=== PATIENT | female | born 1980 | race African-American/Black ===

== ENCOUNTER 2019-03-31 09:06 | Emergency (ER) | payer OTHER ==
[~2019-03-31] VITALS: Ht 162.5 cm; Wt 82.6 kg
--- NOTE | ~2019-03-31 | EKG ---
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
[2019-03-31 10:11] LABS: HEMATOCRIT 30.6 % (37.0-47.0); HEMOGLOBIN 9.1 g/dl (12.0-16.0); MEAN CELL VOLUME 78.3 fl (81.0-99.0); MEAN CORPUSCULAR HGB 23.3 pg (27.0-31.0); MEAN CORPUSCULAR HGB CONC 29.7 g/dl (33.0-37.0); NUCLEATED RED BLOOD CELL 0.1 % (0.0-0.0); PLATELET COUNT AUTOMATED 217 10*3/uL (130-400); RED BLOOD COUNT 3.91 10*6/uL (4.10-5.10); RED CELL DISTRI WIDTH 20.9 % (0-14.5); WHITE BLOOD COUNT 21.7 10*3/uL (4.8-10.8)
[2019-03-31 10:21] LABS: ALBUMIN 3.4 gm/dl (3.1-4.5); ALKALINE PHOSPHATASE 73 U/L (45-117); BUN 9 mg/dl (7-24); CHLORIDE 110 mmol/L (98-107); CREATININE 1.02 mg/dL (0.55-1.02); LIPASE 113 U/L (73-393); SGOT/AST 17 IU/L (3-35); SGPT/ALT 17 U/L (12-78); SODIUM 141 mmol/L (136-145); TOTAL PROTEIN 7.3 gm/dL (6.4-8.2)
[2019-03-31 10:25] LABS: TROPONIN I < 0.015 ng/ml (<0.045)
[2019-03-31 10:32] LABS: BASOPHILS 1 % (0-1); TOTAL CELLS COUNTED 100 #CELLS
[2019-03-31 10:33] LABS: MICROCYTOSIS SLIGHT; OVALOCYTES FEW; POLYCHROMASIA SLIGHT; SCHISTOCYTES FEW
[2019-03-31 10:34] LABS: PLATELET SUFFICIENCY NORMAL (NORMAL)
[2019-03-31 10:41] LABS: BILIRUBIN NEGATIVE (NEGATIVE); BLOOD TRACE-INTACT (NEGATIVE); CLARITY SL CLOUDY (CLEAR); COLOR YELLOW (YELLOW); GLUCOSE NEGATIVE (NEGATIVE); KETONE NEGATIVE (NEGATIVE); LEUKO ESTERASE NEGATIVE (NEGATIVE); NITRITE NEGATIVE (NEGATIVE); SPECIFIC GRAVITY <= 1.005 (1.005-1.030); UROBILINOGEN 0.2 E.U./dl (0.2-1.0)
[2019-03-31 10:51] LABS: BACTERIA TRACE; RBC 0-2 rbc/hpf (0-2)
== END 2019-03-31 12:35 | disposition left against medical advice (07) ==
LOC: ED 09:06
PROVIDERS: Physician Assistant
DX: D57.00 Hb-SS disease with crisis, unspecified (principal); J18.9 Pneumonia, unspecified organism; R11.10 Vomiting, unspecified; Z88.8 Allergy status to other drugs, medicaments and biological substances

== ENCOUNTER 2019-04-07 11:31 | Emergency (ER) | payer OTHER ==
[~2019-04-07] VITALS: Ht 162.5 cm; Wt 80.3 kg
[2019-04-07 12:47] LABS: HEMATOCRIT 31.2 % (37.0-47.0); HEMOGLOBIN 9.4 g/dl (12.0-16.0); MEAN CORPUSCULAR HGB 23.8 pg (27.0-31.0); MEAN CORPUSCULAR HGB CONC 30.1 g/dl (33.0-37.0); MEAN PLATELET VOLUME 11.9 fl (9.6-12.3); PLATELET COUNT AUTOMATED 314 10*3/uL (130-400); RED BLOOD COUNT 3.95 10*6/uL (4.10-5.10); RED CELL DISTRI WIDTH 21.2 % (0-14.5); RETICULOCYTE % 2.19 % (0.50-2.50); WHITE BLOOD COUNT 16.1 10*3/uL (4.8-10.8)
[2019-04-07 13:01] LABS: ALBUMIN 3.7 gm/dl (3.1-4.5); ALKALINE PHOSPHATASE 77 U/L (45-117); BUN 5 mg/dl (7-24); CHLORIDE 108 mmol/L (98-107); CREATININE 0.81 mg/dL (0.55-1.02); POTASSIUM 3.9 mmol/L (3.5-5.1); SGOT/AST 12 IU/L (3-35); SGPT/ALT 16 U/L (12-78); SODIUM 139 mmol/L (136-145); TOTAL PROTEIN 7.6 gm/dL (6.4-8.2)
[2019-04-07 13:06] LABS: BASOPHILS 1 % (0-1); POLYCHROMASIA SLIGHT; SCHISTOCYTES FEW; SPHEROCYTES FEW; TOTAL CELLS COUNTED 100 #CELLS
[2019-04-07 13:07] LABS: PLATELET SUFFICIENCY NORMAL (NORMAL)
[2019-04-07 13:08] LABS: OVALOCYTES MODERATE
== END 2019-04-07 14:51 | disposition home or self-care (01) ==
LOC: ED 11:31
PROVIDERS: Physician Assistant
DX: D57.00 Hb-SS disease with crisis, unspecified (principal); I10 Essential (primary) hypertension; Z91.041 Radiographic dye allergy status; Z88.6 Allergy status to analgesic agent; Z91.013 Allergy to seafood; Z88.8 Allergy status to other drugs, medicaments and biological substances; Z86.718 Personal history of other venous thrombosis and embolism; Z86.711 Personal history of pulmonary embolism; Z90.89 Acquired absence of other organs; Z98.51 Tubal ligation status

== ENCOUNTER 2019-04-23 11:15 | Emergency (ER) | payer OTHER ==
[~2019-04-23] VITALS: Ht 162.5 cm; Wt 80.3 kg
[2019-04-23 12:00] LABS: HEMATOCRIT 30.8 % (37.0-47.0); MEAN CORPUSCULAR HGB 23.4 pg (27.0-31.0); MEAN CORPUSCULAR HGB CONC 29.2 g/dl (33.0-37.0); MEAN PLATELET VOLUME 11.6 fl (9.6-12.3); NUCLEATED RED BLOOD CELL 0.2 % (0.0-0.0); PLATELET COUNT AUTOMATED 185 10*3/uL (130-400); RED BLOOD COUNT 3.85 10*6/uL (4.10-5.10); RED CELL DISTRI WIDTH 20.8 % (0-14.5)
[2019-04-23 12:01] LABS: RETICULOCYTE % 2.09 % (0.50-2.50)
[2019-04-23 12:14] LABS: BILIRUBIN NEGATIVE (NEGATIVE); BLOOD NEGATIVE (NEGATIVE); CLARITY SL CLOUDY (CLEAR); COLOR YELLOW (YELLOW); GLUCOSE NEGATIVE (NEGATIVE); KETONE NEGATIVE (NEGATIVE); LEUKO ESTERASE NEGATIVE (NEGATIVE); NITRITE NEGATIVE (NEGATIVE); PH 6.5 (5.0-9.0); SPECIFIC GRAVITY <= 1.005 (1.005-1.030); UROBILINOGEN 0.2 E.U./dl (0.2-1.0)
[2019-04-23 12:16] LABS: ALBUMIN 3.4 gm/dl (3.1-4.5); ALKALINE PHOSPHATASE 75 U/L (45-117); BUN 6 mg/dl (7-24); CHLORIDE 106 mmol/L (98-107); CREATININE 0.91 mg/dL (0.55-1.02); LIPASE 90 U/L (73-393); OVALOCYTES FEW; POLYCHROMASIA SLIGHT; SGOT/AST 28 IU/L (3-35); SGPT/ALT 24 U/L (12-78); SODIUM 138 mmol/L (136-145); TOTAL CELLS COUNTED 100 #CELLS; TOTAL PROTEIN 7.2 gm/dL (6.4-8.2)
[2019-04-23 12:17] LABS: PLATELET SUFFICIENCY NORMAL (NORMAL); SCHISTOCYTES FEW
[2019-04-23 12:18] LABS: MICROCYTOSIS SLIGHT
[2019-04-23 12:24] LABS: EPITHELIAL CELLS 20-25; RBC 0-2 rbc/hpf (0-2); WBC 0-2 wbc/hpf (0-5)
== END 2019-04-23 14:15 | disposition home or self-care (01) ==
LOC: ED 11:15
PROVIDERS: Nurse Practitioner Family
DX: D57.00 Hb-SS disease with crisis, unspecified (principal); R11.2 Nausea with vomiting, unspecified; I10 Essential (primary) hypertension; G40.909 Epilepsy, unspecified, not intractable, without status epilepticus; Z98.51 Tubal ligation status; Z91.041 Radiographic dye allergy status; Z88.8 Allergy status to other drugs, medicaments and biological substances; Z88.6 Allergy status to analgesic agent; Z91.013 Allergy to seafood; Z86.718 Personal history of other venous thrombosis and embolism; Z90.49 Acquired absence of other specified parts of digestive tract

== ENCOUNTER 2019-05-28 14:35 | Emergency (ER) | payer OTHER ==
[~2019-05-28] VITALS: Ht 162.5 cm; Wt 81.6 kg
[2019-05-28 16:17] LABS: HEMATOCRIT 26.9 % (37.0-47.0); HEMOGLOBIN 8.2 g/dl (12.0-16.0); MEAN CELL VOLUME 80.1 fl (81.0-99.0); MEAN CORPUSCULAR HGB 24.4 pg (27.0-31.0); MEAN CORPUSCULAR HGB CONC 30.5 g/dl (33.0-37.0); MEAN PLATELET VOLUME 11.4 fl (9.6-12.3); NUCLEATED RED BLOOD CELL 0.1 % (0.0-0.0); NUCLEATED RED BLOOD CELL 0.1 10*3/uL (0.0-0.0); PLATELET COUNT AUTOMATED 189 10*3/uL (130-400); RED BLOOD COUNT 3.36 10*6/uL (4.10-5.10); RED CELL DISTRI WIDTH 22.3 % (0-14.5)
[2019-05-28 16:21] LABS: WHITE BLOOD COUNT 42.8 10*3/uL (4.8-10.8)
[2019-05-28 16:29] LABS: ALBUMIN 3.4 gm/dl (3.1-4.5); ALKALINE PHOSPHATASE 74 U/L (45-117); BUN 7 mg/dl (7-24); CHLORIDE 107 mmol/L (98-107); CREATININE 0.83 mg/dL (0.55-1.02); POTASSIUM 3.6 mmol/L (3.5-5.1); SGOT/AST 9 IU/L (3-35); SGPT/ALT 16 U/L (12-78); SODIUM 138 mmol/L (136-145); TOTAL PROTEIN 6.9 gm/dL (6.4-8.2)
[2019-05-28 16:38] LABS: POLYCHROMASIA SLIGHT; TOTAL CELLS COUNTED 100 #CELLS
[2019-05-28 16:41] LABS: OVALOCYTES FEW; PLATELET SUFFICIENCY NORMAL (NORMAL)
== END 2019-05-28 17:10 | disposition left against medical advice (07) ==
LOC: ED 14:35
PROVIDERS: Family Medicine
DX: K29.70 Gastritis, unspecified, without bleeding (principal); R11.10 Vomiting, unspecified; Z91.041 Radiographic dye allergy status; Z91.013 Allergy to seafood; Z88.6 Allergy status to analgesic agent; Z88.8 Allergy status to other drugs, medicaments and biological substances

== ENCOUNTER 2019-07-28 09:06 | Emergency (ER) | payer OTHER ==
[~2019-07-28] VITALS: Ht 162.5 cm; Wt 79.4 kg
[2019-07-28 10:04] LABS: HEMATOCRIT 29.5 % (37.0-47.0); HEMOGLOBIN 8.7 g/dl (12.0-16.0); MEAN CELL VOLUME 83.6 fl (81.0-99.0); MEAN CORPUSCULAR HGB 24.6 pg (27.0-31.0); MEAN CORPUSCULAR HGB CONC 29.5 g/dl (33.0-37.0); MEAN PLATELET VOLUME 11.7 fl (9.6-12.3); NUCLEATED RED BLOOD CELL 0.2 10*3/uL (0.0-0.0); NUCLEATED RED BLOOD CELL 0.4 % (0.0-0.0); PLATELET COUNT AUTOMATED 258 10*3/uL (130-400); RED BLOOD COUNT 3.53 10*6/uL (4.10-5.10); RED CELL DISTRI WIDTH 21.2 % (0-14.5)
[2019-07-28 10:15] LABS: WHITE BLOOD COUNT 40.3 10*3/uL (4.8-10.8)
[2019-07-28 10:18] LABS: ALBUMIN 3.6 gm/dl (3.1-4.5); ALKALINE PHOSPHATASE 76 U/L (45-117); BUN 9 mg/dl (7-24); CHLORIDE 111 mmol/L (98-107); CREATININE 0.84 mg/dL (0.55-1.02); POTASSIUM 4.1 mmol/L (3.5-5.1); SGOT/AST 11 IU/L (3-35); SGPT/ALT 17 U/L (12-78); SODIUM 142 mmol/L (136-145); TOTAL PROTEIN 7.3 gm/dL (6.4-8.2)
[2019-07-28 10:29] LABS: TOTAL CELLS COUNTED 100 #CELLS
[2019-07-28 10:29] LABS: CLARITY CLEAR (CLEAR); COLOR YELLOW (YELLOW)
[2019-07-28 10:30] LABS: BILIRUBIN NEGATIVE (NEGATIVE); BLOOD NEGATIVE (NEGATIVE); GLUCOSE NEGATIVE (NEGATIVE); KETONE NEGATIVE (NEGATIVE); LEUKO ESTERASE NEGATIVE (NEGATIVE); NITRITE NEGATIVE (NEGATIVE); PH 6.5 (5.0-9.0); SPECIFIC GRAVITY 1.005 (1.005-1.030); UROBILINOGEN 0.2 E.U./dl (0.2-1.0)
[2019-07-28 10:30] LABS: OVALOCYTES FEW; PLATELET SUFFICIENCY NORMAL (NORMAL); POLYCHROMASIA SLIGHT
[2019-07-28 10:34] LABS: URINE AMPHETAMINES < 1000 (1000ng/ml); URINE BARBITURATES < 200 (200ng/ml); URINE BENZODIAZEPINES > 200 (200ng/ml); URINE CANNABINOIDS (THC) < 50 (50ng/ml); URINE COCAINE < 300 (300ng/ml); URINE METHADONE < 300 (300ng/ml); URINE OPIATES < 300 (300ng/ml)
[2019-07-28 10:35] LABS: RBC 0-2 rbc/hpf (0-2); WBC 0-2 wbc/hpf (0-5)
[2019-07-28 10:40] LABS: URINE PHENCYCLIDINE < 25 (25ng/ml)
== END 2019-07-28 12:15 | disposition home or self-care (01) ==
LOC: ED 09:06
PROVIDERS: Emergency Medicine
DX: D57.1 Sickle-cell disease without crisis (principal); I10 Essential (primary) hypertension; G40.909 Epilepsy, unspecified, not intractable, without status epilepticus; Z90.49 Acquired absence of other specified parts of digestive tract; Z91.041 Radiographic dye allergy status; Z91.013 Allergy to seafood; Z88.5 Allergy status to narcotic agent; Z88.8 Allergy status to other drugs, medicaments and biological substances

== ENCOUNTER 2019-07-30 16:20 | Emergency (ER) | payer OTHER ==
[~2019-07-30] VITALS: Ht 162.5 cm; Wt 79.4 kg
[2019-07-30] MEDS ORDERED: DIPHENHYDRAMINE50 M1 PO (17:53)
== END 2019-07-30 17:58 | disposition home or self-care (01) ==
LOC: ED 16:20
DX: D57.1 Sickle-cell disease without crisis (principal); R11.2 Nausea with vomiting, unspecified; R10.9 Unspecified abdominal pain; I10 Essential (primary) hypertension; L40.9 Psoriasis, unspecified; Z91.041 Radiographic dye allergy status; Z88.8 Allergy status to other drugs, medicaments and biological substances; Z91.013 Allergy to seafood; Z88.5 Allergy status to narcotic agent

== ENCOUNTER 2019-09-22 09:08 | Emergency (ER) | payer OTHER ==
[~2019-09-22] VITALS: Ht 162.5 cm; Wt 81.6 kg
[~2019-09-22 09:08] MED LIST: DIPHENHYDRAMINE50 M1 PO
[2019-09-22 09:45] LABS: BILIRUBIN NEGATIVE (NEGATIVE); BLOOD 2+ (NEGATIVE); CLARITY CLEAR (CLEAR); COLOR YELLOW (YELLOW); GLUCOSE NEGATIVE (NEGATIVE); KETONE NEGATIVE (NEGATIVE); PH 6.5 (5.0-9.0); SPECIFIC GRAVITY 1.005 (1.005-1.030)
[2019-09-22 09:46] LABS: BACTERIA TRACE; LEUKO ESTERASE NEGATIVE (NEGATIVE); NITRITE NEGATIVE (NEGATIVE); UROBILINOGEN 0.2 E.U./dl (0.2-1.0)
[2019-09-22 09:52] LABS: BASO # 0.4 10*3/uL (0.0-0.1); BASO % 0.6 % (0.0-1.0); EOS # 0.1 10*3/uL (0.0-0.4); EOS % 0.2 % (1.0-4.0); HEMATOCRIT 30.8 % (37.0-47.0); LYMPH # 3.4 10*3/uL (1.3-4.4); LYMPH % 5.9 % (27.0-41.0); MEAN CELL VOLUME 83.2 fl (81.0-99.0); MEAN CORPUSCULAR HGB 25.9 pg (27.0-31.0); MEAN CORPUSCULAR HGB CONC 31.2 g/dl (33.0-37.0); MEAN PLATELET VOLUME 10.2 fl (9.6-12.3); MONO # 2.4 10*3/uL (0.1-1.0); MONO % 4.1 % (3.0-9.0); NEUT # 40.1 10*3/uL (2.3-7.9); NEUT % 69.3 % (47.0-73.0); NUCLEATED RED BLOOD CELL 0.1 10*3/uL (0.0-0.0); NUCLEATED RED BLOOD CELL 0.2 % (0.0-0.0); PLATELET COUNT AUTOMATED 235 10*3/uL (130-400); RED CELL DISTRI WIDTH 21.2 % (0-14.5)
[2019-09-22 09:55] LABS: WHITE BLOOD COUNT 57.9 10*3/uL (4.8-10.8)
[2019-09-22 10:05] LABS: ALBUMIN 3.7 gm/dl (3.1-4.5); ALKALINE PHOSPHATASE 65 U/L (45-117); BUN 9 mg/dl (7-24); CHLORIDE 108 mmol/L (98-107); CREATININE 1.05 mg/dL (0.55-1.02); POTASSIUM 3.7 mmol/L (3.5-5.1); SGOT/AST 16 IU/L (3-35); SGPT/ALT 17 U/L (12-78); SODIUM 141 mmol/L (136-145); TOTAL PROTEIN 7.5 gm/dL (6.4-8.2)
[2019-09-22 10:33] LABS: TOTAL CELLS COUNTED 100 #CELLS
[2019-09-22 10:34] LABS: PLATELET SUFFICIENCY NORMAL (NORMAL)
== END 2019-09-22 12:07 | disposition home or self-care (01) ==
LOC: ED 09:08
PROVIDERS: Nurse Practitioner Family
DX: D57.00 Hb-SS disease with crisis, unspecified (principal); I10 Essential (primary) hypertension; Z91.041 Radiographic dye allergy status; Z88.8 Allergy status to other drugs, medicaments and biological substances; Z91.013 Allergy to seafood; Z88.5 Allergy status to narcotic agent

== ENCOUNTER 2019-10-12 11:18 | Emergency (ER) | payer OTHER ==
[~2019-10-12] VITALS: Ht 162.5 cm; Wt 81.6 kg
[2019-10-12 12:04] LABS: HEMATOCRIT 30.1 % (37.0-47.0); MEAN CELL VOLUME 83.6 fl (81.0-99.0); MEAN CORPUSCULAR HGB 25.6 pg (27.0-31.0); MEAN CORPUSCULAR HGB CONC 30.6 g/dl (33.0-37.0); MEAN PLATELET VOLUME 11.2 fl (9.6-12.3); NUCLEATED RED BLOOD CELL 0.4 10*3/uL (0.0-0.0); NUCLEATED RED BLOOD CELL 0.6 % (0.0-0.0); PLATELET COUNT AUTOMATED 277 10*3/uL (130-400); RED CELL DISTRI WIDTH 21.2 % (0-14.5)
[2019-10-12 12:07] LABS: WHITE BLOOD COUNT 65.3 10*3/uL (4.8-10.8)
[2019-10-12 12:18] LABS: BUN 8 mg/dl (7-24); CHLORIDE 107 mmol/L (98-107); CREATININE 0.76 mg/dL (0.55-1.02); POTASSIUM 3.7 mmol/L (3.5-5.1); SODIUM 139 mmol/L (136-145)
[2019-10-12 12:20] LABS: TROPONIN I < 0.015 ng/ml (<0.045)
[2019-10-12 12:48] LABS: BASOPHILS 1 % (0-1); PLATELET SUFFICIENCY NORMAL (NORMAL); POLYCHROMASIA SLIGHT; TOTAL CELLS COUNTED 100 #CELLS
== END 2019-10-12 13:21 | disposition home or self-care (01) ==
LOC: ED 11:18
PROVIDERS: Emergency Medicine
DX: D57.00 Hb-SS disease with crisis, unspecified (principal); R52 Pain, unspecified; R11.2 Nausea with vomiting, unspecified; E86.0 Dehydration; I10 Essential (primary) hypertension; Z88.8 Allergy status to other drugs, medicaments and biological substances; Z91.013 Allergy to seafood; Z88.6 Allergy status to analgesic agent; Z98.51 Tubal ligation status; Z90.49 Acquired absence of other specified parts of digestive tract; Z86.718 Personal history of other venous thrombosis and embolism; Z98.890 Other specified postprocedural states; Z91.041 Radiographic dye allergy status

== ENCOUNTER 2019-10-26 09:12 | Emergency (ER) | payer OTHER ==
[~2019-10-26] VITALS: Ht 162.5 cm; Wt 81.6 kg
[2019-10-26 10:22] LABS: HEMATOCRIT 30.1 % (37.0-47.0); MEAN CELL VOLUME 83.4 fl (81.0-99.0); MEAN CORPUSCULAR HGB 25.5 pg (27.0-31.0); MEAN CORPUSCULAR HGB CONC 30.6 g/dl (33.0-37.0); MEAN PLATELET VOLUME 11.9 fl (9.6-12.3); NUCLEATED RED BLOOD CELL 0.5 % (0.0-0.0); NUCLEATED RED BLOOD CELL 0.5 10*3/uL (0.0-0.0); PLATELET COUNT AUTOMATED 239 10*3/uL (130-400); RED BLOOD COUNT 3.61 10*6/uL (4.10-5.10); RED CELL DISTRI WIDTH 21.6 % (0-14.5)
[2019-10-26 10:25] LABS: WHITE BLOOD COUNT 89.4 10*3/uL (4.8-10.8)
[2019-10-26 10:30] LABS: ACT PARTIAL THROMBO TIME 29.1 SECONDS (20.0-32.1); INTERNATIONAL NORM RATIO 1.1 (2.0-3.5)
[2019-10-26 10:37] LABS: ALBUMIN 3.8 gm/dl (3.1-4.5); ALKALINE PHOSPHATASE 68 U/L (45-117); BUN 8 mg/dl (7-24); CHLORIDE 108 mmol/L (98-107); CREATININE 1.02 mg/dL (0.55-1.02); LIPASE 57 U/L (73-393); POTASSIUM 3.9 mmol/L (3.5-5.1); SGOT/AST 12 IU/L (3-35); SGPT/ALT 15 U/L (12-78); SODIUM 139 mmol/L (136-145); TOTAL PROTEIN 8.1 gm/dL (6.4-8.2)
[2019-10-26 10:38] LABS: BETA-HCG, QUANT < 1.0 mIU/mL (1-3); TROPONIN I < 0.015 ng/ml (<0.045)
[2019-10-26 10:49] LABS: BASOPHILS 1 % (0-1); TOTAL CELLS COUNTED 100 #CELLS
[2019-10-26 10:50] LABS: PLATELET SUFFICIENCY NORMAL (NORMAL)
[2019-10-26 11:06] LABS: BILIRUBIN NEGATIVE (NEGATIVE); BLOOD NEGATIVE (NEGATIVE); CLARITY CLEAR (CLEAR); COLOR YELLOW (YELLOW); GLUCOSE NEGATIVE (NEGATIVE); KETONE NEGATIVE (NEGATIVE); LEUKO ESTERASE NEGATIVE (NEGATIVE); NITRITE NEGATIVE (NEGATIVE); PH 6.5 (5.0-9.0); SPECIFIC GRAVITY 1.005 (1.005-1.030); UROBILINOGEN 0.2 E.U./dl (0.2-1.0)
== END 2019-10-26 12:00 | disposition left against medical advice (07) ==
LOC: ED 09:12
PROVIDERS: Emergency Medicine
DX: D57.00 Hb-SS disease with crisis, unspecified (principal); I10 Essential (primary) hypertension; R56.9 Unspecified convulsions; Z88.8 Allergy status to other drugs, medicaments and biological substances; Z91.013 Allergy to seafood; Z88.5 Allergy status to narcotic agent; Z87.891 Personal history of nicotine dependence

== ENCOUNTER 2019-11-12 13:24 | Emergency (ER) | payer OTHER ==
[~2019-11-12] VITALS: Ht 167.6 cm; Wt 81.6 kg
[2019-11-12 15:02] LABS: HEMATOCRIT 28.5 % (37.0-47.0); MEAN CELL VOLUME 84.3 fl (81.0-99.0); MEAN CORPUSCULAR HGB 25.4 pg (27.0-31.0); MEAN CORPUSCULAR HGB CONC 30.2 g/dl (33.0-37.0); MEAN PLATELET VOLUME 10.8 fl (9.6-12.3); NUCLEATED RED BLOOD CELL 0.6 % (0.0-0.0); NUCLEATED RED BLOOD CELL 0.6 10*3/uL (0.0-0.0); PLATELET COUNT AUTOMATED 188 10*3/uL (130-400); RED BLOOD COUNT 3.38 10*6/uL (4.10-5.10); RED CELL DISTRI WIDTH 21.2 % (0-14.5); RETICULOCYTE % 3.24 % (0.50-2.50)
[2019-11-12 15:17] LABS: ALBUMIN 3.5 gm/dl (3.1-4.5); ALKALINE PHOSPHATASE 66 U/L (45-117); BUN 10 mg/dl (7-24); CHLORIDE 106 mmol/L (98-107); CREATININE 0.92 mg/dL (0.55-1.02); POTASSIUM 4.2 mmol/L (3.5-5.1); SGOT/AST 20 IU/L (3-35); SGPT/ALT 19 U/L (12-78); SODIUM 137 mmol/L (136-145); TOTAL PROTEIN 7.7 gm/dL (6.4-8.2)
[2019-11-12 15:38] LABS: BASOPHILS 2 % (0-1); PLATELET SUFFICIENCY NORMAL (NORMAL); TOTAL CELLS COUNTED 100 #CELLS
[2019-11-12 15:39] LABS: POLYCHROMASIA SLIGHT
[2019-11-12 15:40] LABS: MICROCYTOSIS MODERATE
== END 2019-11-12 17:22 | disposition home or self-care (01) ==
LOC: ED 13:24
PROVIDERS: Physician Assistant
DX: C92.10 Chronic myeloid leukemia, BCR/ABL-positive, not having achieved remission (principal); D57.1 Sickle-cell disease without crisis; I10 Essential (primary) hypertension; R56.9 Unspecified convulsions; Z91.041 Radiographic dye allergy status; Z88.5 Allergy status to narcotic agent; Z88.8 Allergy status to other drugs, medicaments and biological substances; Z79.899 Other long term (current) drug therapy

== ENCOUNTER 2019-11-27 10:44 | Emergency (ER) | payer OTHER ==
[~2019-11-27] VITALS: Ht 167.6 cm; Wt 81.6 kg
[2019-11-27 12:06] LABS: HEMATOCRIT 27.6 % (37.0-47.0); MEAN CELL VOLUME 83.6 fl (81.0-99.0); MEAN CORPUSCULAR HGB 25.2 pg (27.0-31.0); MEAN CORPUSCULAR HGB CONC 30.1 g/dl (33.0-37.0); MEAN PLATELET VOLUME 10.9 fl (9.6-12.3); NUCLEATED RED BLOOD CELL 0.4 10*3/uL (0.0-0.0); NUCLEATED RED BLOOD CELL 0.5 % (0.0-0.0); PLATELET COUNT AUTOMATED 203 10*3/uL (130-400); RED CELL DISTRI WIDTH 21.8 % (0-14.5)
[2019-11-27 12:18] LABS: WHITE BLOOD COUNT 68.4 10*3/uL (4.8-10.8)
[2019-11-27 12:27] LABS: ALBUMIN 3.4 gm/dl (3.1-4.5); ALKALINE PHOSPHATASE 65 U/L (45-117); BUN 4 mg/dl (7-24); CHLORIDE 110 mmol/L (98-107); CREATININE 0.84 mg/dL (0.55-1.02); POTASSIUM 3.8 mmol/L (3.5-5.1); SGOT/AST 11 IU/L (3-35); SGPT/ALT 13 U/L (12-78); SODIUM 141 mmol/L (136-145); TOTAL PROTEIN 7.1 gm/dL (6.4-8.2)
[2019-11-27 12:36] LABS: BASOPHILS 1 % (0-1); OVALOCYTES FEW; PLATELET SUFFICIENCY NORMAL (NORMAL); POLYCHROMASIA SLIGHT; TOTAL CELLS COUNTED 100 #CELLS
[2019-11-27 12:38] LABS: BLASTS 1 % (0-0)
== END 2019-11-27 13:26 | disposition home or self-care (01) ==
LOC: ED 10:44
PROVIDERS: Nurse Practitioner Family
DX: G89.29 Other chronic pain (principal); Z91.041 Radiographic dye allergy status; Z91.013 Allergy to seafood; Z88.6 Allergy status to analgesic agent; Z88.8 Allergy status to other drugs, medicaments and biological substances

== ENCOUNTER 2020-01-08 16:26 | Emergency (ER) | payer OTHER ==
[~2020-01-08] VITALS: Ht 167.6 cm; Wt 77.1 kg
== END 2020-01-08 18:16 | disposition home or self-care (01) ==
LOC: ED 16:26
DX: D57.00 Hb-SS disease with crisis, unspecified (principal); R11.2 Nausea with vomiting, unspecified; M79.10 Myalgia, unspecified site; I10 Essential (primary) hypertension; Z91.041 Radiographic dye allergy status; Z91.013 Allergy to seafood; Z88.6 Allergy status to analgesic agent; Z88.8 Allergy status to other drugs, medicaments and biological substances

== ENCOUNTER 2020-02-24 13:30 | Emergency (ER) | payer OTHER ==
[~2020-02-24] VITALS: Wt 81.6 kg
[2020-02-24 15:27] LABS: HEMATOCRIT 36.9 % (37.0-47.0); MEAN CELL VOLUME 82.4 fl (81.0-99.0); MEAN CORPUSCULAR HGB CONC 30.4 g/dl (33.0-37.0); NUCLEATED RED BLOOD CELL 0.7 10*3/uL (0.0-0.0); NUCLEATED RED BLOOD CELL 3.4 % (0.0-0.0); PLATELET COUNT AUTOMATED 148 10*3/uL (130-400); RED BLOOD COUNT 4.48 10*6/uL (4.10-5.10); RED CELL DISTRI WIDTH 24.1 % (0-14.5); WHITE BLOOD COUNT 18.9 10*3/uL (4.8-10.8)
[2020-02-24 15:35] LABS: ACT PARTIAL THROMBO TIME 32.6 SECONDS (20.0-32.1); INTERNATIONAL NORM RATIO 1.1 (2.0-3.5)
[2020-02-24 15:36] LABS: BUN 7 mg/dl (7-24); CHLORIDE 106 mmol/L (98-107); CREATININE 0.82 mg/dL (0.55-1.02); POTASSIUM 3.9 mmol/L (3.5-5.1); SODIUM 138 mmol/L (136-145)
[2020-02-24 15:43] LABS: BASOPHILS 1 % (0-1); POLYCHROMASIA SLIGHT; SCHISTOCYTES FEW; TOTAL CELLS COUNTED 100 #CELLS
[2020-02-24 15:44] LABS: PLATELET SUFFICIENCY NORMAL (NORMAL)
== END 2020-02-24 16:34 | disposition home or self-care (01) ==
LOC: ED 13:30
PROVIDERS: Emergency Medicine
DX: D57.00 Hb-SS disease with crisis, unspecified (principal); I10 Essential (primary) hypertension; Z88.8 Allergy status to other drugs, medicaments and biological substances; Z91.013 Allergy to seafood; Z88.5 Allergy status to narcotic agent; Z79.899 Other long term (current) drug therapy

== ENCOUNTER 2020-03-17 03:39 | Emergency (ER) | payer OTHER ==
[~2020-03-17] VITALS: Wt 79.4 kg
[2020-03-17 04:32] LABS: BILIRUBIN Negative (Negative); BLOOD 3+ (Negative); CLARITY Clear (Clear); COLOR Yellow (Yellow); GLUCOSE Negative (Negative); KETONE Negative (Negative); LEUKO ESTERASE Negative (Negative); NITRITE Negative (Negative)
[2020-03-17 04:44] LABS: EPITHELIAL CELLS 16-20
[2020-03-17 04:45] LABS: BACTERIA TRACE; RBC 16-20 rbc/hpf (0-2); WBC 0-2 wbc/hpf (0-5)
[2020-03-17 05:22] LABS: ALBUMIN 3.3 gm/dl (3.1-4.5); ALKALINE PHOSPHATASE 60 U/L (45-117); BUN 9 mg/dl (7-24); CHLORIDE 108 mmol/L (98-107); CREATININE 0.75 mg/dL (0.55-1.02); POTASSIUM 3.8 mmol/L (3.5-5.1); SGOT/AST 19 IU/L (3-35); SGPT/ALT 13 U/L (12-78); SODIUM 140 mmol/L (136-145); TOTAL PROTEIN 6.6 gm/dL (6.4-8.2)
[2020-03-17 05:53] LABS: HEMATOCRIT 29.2 % (37.0-47.0); MEAN CELL VOLUME 83.4 fl (81.0-99.0); MEAN CORPUSCULAR HGB 24.6 pg (27.0-31.0); MEAN CORPUSCULAR HGB CONC 29.5 g/dl (33.0-37.0); NUCLEATED RED BLOOD CELL 0.2 10*3/uL (0.0-0.0); NUCLEATED RED BLOOD CELL 0.4 % (0.0-0.0); PLATELET COUNT AUTOMATED 177 10*3/uL (130-400)
[2020-03-17 06:12] LABS: BASOPHILS 1 % (0-1); OVALOCYTES FEW; PLATELET SUFFICIENCY NORMAL (NORMAL); POLYCHROMASIA SLIGHT; SCHISTOCYTES FEW; TOTAL CELLS COUNTED 100 #CELLS
== END 2020-03-17 06:37 | disposition home or self-care (01) ==
LOC: ED 03:39
PROVIDERS: Emergency Medicine Emergency Medical Services
DX: C92.10 Chronic myeloid leukemia, BCR/ABL-positive, not having achieved remission (principal); D57.00 Hb-SS disease with crisis, unspecified; Z88.8 Allergy status to other drugs, medicaments and biological substances; Z91.041 Radiographic dye allergy status; Z91.013 Allergy to seafood; Z79.899 Other long term (current) drug therapy

== ENCOUNTER 2020-04-21 18:40 | Emergency (ER) | payer OTHER ==
[~2020-04-21] VITALS: Ht 162.5 cm; Wt 79.4 kg
[2020-04-21] MEDS ORDERED: CLONAZEPAM1 MG PO (18:54)
[2020-04-21] MEDS ORDERED: ALLOPURINOL300 MG PO (18:54)
[2020-04-21] MEDS ORDERED: DOXEPIN HCL100 MG PO (18:55)
[2020-04-21] MEDS ORDERED: ELIQUIS2.5 M1 PO (18:55)
[2020-04-21] MEDS ORDERED: NEURONTIN300 MG PO (18:56)
[2020-04-21] MEDS ORDERED: HYDROXYUREA500 MG PO (18:57)
[2020-04-21] MEDS ORDERED: HYDROMORPHONE HC2 MG PO (18:57)
[2020-04-21] MEDS ORDERED: NATURE'S BLEND F1 MG PO (18:58)
[2020-04-21] MEDS ORDERED: LEVETIRACETAM500 MG PO (18:58)
[2020-04-21] MEDS ORDERED: PREDNISONE10 MG PO (18:59)
[2020-04-21] MEDS ORDERED: PHENERGAN25 M3 PO (18:59)
[2020-04-21] MEDS ORDERED: OXYCODONE HYDRO30 MG PO (18:59)
[2020-04-21] MEDS ORDERED: KENALOG 0.1% OI15 GM T (19:01)
[2020-04-21] MEDS ORDERED: TASIGNA200 MG PO (19:01)
[2020-04-21 19:32] LABS: HEMATOCRIT 24.7 % (37.0-47.0); MEAN CELL VOLUME 82.9 fl (81.0-99.0); MEAN CORPUSCULAR HGB 23.8 pg (27.0-31.0); MEAN CORPUSCULAR HGB CONC 28.7 g/dl (33.0-37.0); NUCLEATED RED BLOOD CELL 0.3 10*3/uL (0.0-0.0); NUCLEATED RED BLOOD CELL 0.9 % (0.0-0.0); PLATELET COUNT AUTOMATED 178 10*3/uL (130-400); RED BLOOD COUNT 2.98 10*6/uL (4.10-5.10); RED CELL DISTRI WIDTH 25.2 % (0-14.5)
[2020-04-21 19:42] LABS: BUN 4 mg/dl (7-24); CHLORIDE 108 mmol/L (98-107); CREATININE 0.79 mg/dL (0.55-1.02); POTASSIUM 3.8 mmol/L (3.5-5.1); SODIUM 140 mmol/L (136-145); WHITE BLOOD COUNT 37.5 10*3/uL (4.8-10.8)
[2020-04-21 20:06] LABS: BASOPHILS 2 % (0-1); TOTAL CELLS COUNTED 100 #CELLS
[2020-04-21 20:07] LABS: PLATELET SUFFICIENCY NORMAL (NORMAL)
[2020-04-21 20:08] LABS: MICROCYTOSIS SLIGHT; OVALOCYTES FEW
[2020-04-21 20:09] LABS: POLYCHROMASIA SLIGHT
== END 2020-04-21 22:39 | disposition home or self-care (01) ==
LOC: ED 18:40
PROVIDERS: Nurse Practitioner Family
DX: D57.00 Hb-SS disease with crisis, unspecified (principal); Z91.013 Allergy to seafood; Z88.5 Allergy status to narcotic agent; Z91.041 Radiographic dye allergy status; Z88.8 Allergy status to other drugs, medicaments and biological substances; Z79.899 Other long term (current) drug therapy

== ENCOUNTER 2020-04-28 07:48 | Emergency (ER) | payer OTHER ==
[~2020-04-28] VITALS: Ht 162.5 cm; Wt 79.4 kg
[~2020-04-28 07:48] MED LIST changes: +ALLOPURINOL300 MG PO; +CLONAZEPAM1 MG PO; +DOXEPIN HCL100 MG PO; +ELIQUIS2.5 M1 PO; +HYDROMORPHONE HC2 MG PO; +HYDROXYUREA500 MG PO; +KENALOG 0.1% OI15 GM T; +LEVETIRACETAM500 MG PO; +NATURE'S BLEND F1 MG PO; +NEURONTIN300 MG PO; +OXYCODONE HYDRO30 MG PO; +PHENERGAN25 M3 PO; +PREDNISONE10 MG PO; +TASIGNA200 MG PO
[2020-04-28 08:29] LABS: HEMATOCRIT 26.8 % (37.0-47.0); MEAN CELL VOLUME 80.5 fl (81.0-99.0); MEAN CORPUSCULAR HGB 23.4 pg (27.0-31.0); MEAN CORPUSCULAR HGB CONC 29.1 g/dl (33.0-37.0); NUCLEATED RED BLOOD CELL 1.3 % (0.0-0.0); NUCLEATED RED BLOOD CELL 1.7 10*3/uL (0.0-0.0); PLATELET COUNT AUTOMATED 116 10*3/uL (130-400); RED BLOOD COUNT 3.33 10*6/uL (4.10-5.10); RED CELL DISTRI WIDTH 26.2 % (0-14.5)
[2020-04-28 08:32] LABS: WHITE BLOOD COUNT 129.3 10*3/uL (4.8-10.8)
[2020-04-28 08:46] LABS: MICROCYTOSIS SLIGHT; OVALOCYTES FEW; PLATELET SUFFICIENCY LOW (NORMAL); POLYCHROMASIA SLIGHT; SCHISTOCYTES FEW; TOTAL CELLS COUNTED 100 #CELLS
[2020-04-28 08:49] LABS: ALBUMIN 3.6 gm/dl (3.1-4.5); ALKALINE PHOSPHATASE 78 U/L (45-117); BUN 5 mg/dl (7-24); CHLORIDE 109 mmol/L (98-107); CREATININE 0.89 mg/dL (0.55-1.02); SGOT/AST 27 IU/L (3-35); SGPT/ALT 18 U/L (12-78); SODIUM 140 mmol/L (136-145); TOTAL PROTEIN 7.7 gm/dL (6.4-8.2)
[2020-04-28 08:53] LABS: BLASTS 1 % (0-0)
== END 2020-04-28 10:31 | disposition home or self-care (01) ==
LOC: ED 07:48
PROVIDERS: Emergency Medicine
DX: D57.00 Hb-SS disease with crisis, unspecified (principal); C92.10 Chronic myeloid leukemia, BCR/ABL-positive, not having achieved remission; Z91.013 Allergy to seafood; Z91.041 Radiographic dye allergy status; Z88.5 Allergy status to narcotic agent; Z88.8 Allergy status to other drugs, medicaments and biological substances; Z79.899 Other long term (current) drug therapy

== ENCOUNTER 2020-05-24 13:11 | Emergency (ER) | payer OTHER ==
[2020-05-24 14:40] LABS: HEMATOCRIT 22.6 % (37.0-47.0); MEAN CORPUSCULAR HGB 22.9 pg (27.0-31.0); MEAN CORPUSCULAR HGB CONC 28.3 g/dl (33.0-37.0); NUCLEATED RED BLOOD CELL 1.2 % (0.0-0.0); NUCLEATED RED BLOOD CELL 1.4 10*3/uL (0.0-0.0); PLATELET COUNT AUTOMATED 103 10*3/uL (130-400); RED BLOOD COUNT 2.79 10*6/uL (4.10-5.10); RED CELL DISTRI WIDTH 25.2 % (0-14.5)
[2020-05-24 14:45] LABS: WHITE BLOOD COUNT 116.5 10*3/uL (4.8-10.8)
[2020-05-24 14:56] LABS: ALKALINE PHOSPHATASE 63 U/L (45-117); BUN 4 mg/dl (7-24); CHLORIDE 110 mmol/L (98-107); CREATININE 0.81 mg/dL (0.55-1.02); SGOT/AST 46 IU/L (3-35); SGPT/ALT 21 U/L (12-78); SODIUM 141 mmol/L (136-145); TOTAL PROTEIN 6.8 gm/dL (6.4-8.2)
[2020-05-24 15:08] LABS: BASOPHILS 1 % (0-1); TOTAL CELLS COUNTED 100 #CELLS
[2020-05-24 15:10] LABS: BLASTS 4 % (0-0); POLYCHROMASIA SLIGHT
[2020-05-24 15:11] LABS: PLATELET SUFFICIENCY LOW (NORMAL)
== END 2020-05-24 15:49 | disposition home or self-care (01) ==
LOC: ED 13:11
PROVIDERS: Emergency Medicine
DX: C92.10 Chronic myeloid leukemia, BCR/ABL-positive, not having achieved remission (principal); G89.29 Other chronic pain; D57.1 Sickle-cell disease without crisis; L40.9 Psoriasis, unspecified; Z91.041 Radiographic dye allergy status; Z88.5 Allergy status to narcotic agent; Z91.013 Allergy to seafood; Z88.8 Allergy status to other drugs, medicaments and biological substances; Z79.899 Other long term (current) drug therapy

== ENCOUNTER 2020-06-19 16:59 | Emergency (ER) | payer OTHER | END 2020-06-19 17:19 | disposition left against medical advice (07) | LOC: ED 16:59 | DX: R11.10 Vomiting, unspecified (principal); Z53.21 Procedure and treatment not carried out due to patient leaving prior to being seen by health care provider ==

== ENCOUNTER 2020-06-28 13:22 | Emergency (ER) | payer OTHER ==
[~2020-06-28] VITALS: Wt 82.6 kg
[2020-06-28 15:00] LABS: HEMATOCRIT 25.7 % (37.0-47.0); MEAN CELL VOLUME 82.1 fl (81.0-99.0); MEAN CORPUSCULAR HGB 23.3 pg (27.0-31.0); MEAN CORPUSCULAR HGB CONC 28.4 g/dl (33.0-37.0); NUCLEATED RED BLOOD CELL 2.1 10*3/uL (0.0-0.0); PLATELET COUNT AUTOMATED 94 10*3/uL (130-400); RED BLOOD COUNT 3.13 10*6/uL (4.10-5.10)
[2020-06-28 15:18] LABS: BUN 5 mg/dl (7-24); CHLORIDE 107 mmol/L (98-107); CREATININE 0.82 mg/dL (0.55-1.02); POTASSIUM 3.6 mmol/L (3.5-5.1); SODIUM 140 mmol/L (136-145)
[2020-06-28 15:23] LABS: BASOPHILS 1 % (0-1); TOTAL CELLS COUNTED 100 #CELLS
[2020-06-28 15:25] LABS: PLATELET SUFFICIENCY LOW (NORMAL)
[2020-06-28 15:26] LABS: MICROCYTOSIS SLIGHT; POLYCHROMASIA SLIGHT
[2020-06-28 15:29] LABS: WHITE BLOOD COUNT 108.9 10*3/uL (4.8-10.8)
[2020-06-28 15:30] LABS: BLASTS 3 % (0-0)
== END 2020-06-28 15:58 | disposition home or self-care (01) ==
LOC: ED 13:22
PROVIDERS: Emergency Medicine
DX: C92.10 Chronic myeloid leukemia, BCR/ABL-positive, not having achieved remission (principal); D57.819 Other sickle-cell disorders with crisis, unspecified; G89.29 Other chronic pain; Z79.899 Other long term (current) drug therapy; Z91.041 Radiographic dye allergy status; Z88.6 Allergy status to analgesic agent; Z91.013 Allergy to seafood; Z88.5 Allergy status to narcotic agent

== ENCOUNTER 2020-08-22 13:28 | Emergency (ER) | payer OTHER ==
[~2020-08-22] VITALS: Wt 79.4 kg
[2020-08-22 14:41] LABS: HEMATOCRIT 33.4 % (37.0-47.0); MEAN CELL VOLUME 91.5 fl (81.0-99.0); MEAN CORPUSCULAR HGB 27.1 pg (27.0-31.0); MEAN CORPUSCULAR HGB CONC 29.6 g/dl (33.0-37.0); NUCLEATED RED BLOOD CELL 0.4 10*3/uL (0.0-0.0); NUCLEATED RED BLOOD CELL 0.6 % (0.0-0.0); PLATELET COUNT AUTOMATED 104 10*3/uL (130-400); RED BLOOD COUNT 3.65 10*6/uL (4.10-5.10)
[2020-08-22 14:51] LABS: BUN 6 mg/dl (7-24); CHLORIDE 108 mmol/L (98-107); CREATININE 0.89 mg/dL (0.55-1.02); POTASSIUM 4.3 mmol/L (3.5-5.1); SODIUM 140 mmol/L (136-145)
[2020-08-22 14:56] LABS: ACT PARTIAL THROMBO TIME 29.9 SECONDS (20.0-32.1); INTERNATIONAL NORM RATIO 1.1 (2.0-3.5)
[2020-08-22 14:58] LABS: WHITE BLOOD COUNT 67.9 10*3/uL (4.8-10.8)
[2020-08-22 15:33] LABS: BASOPHILS 1 % (0-1); TOTAL CELLS COUNTED 100 #CELLS
[2020-08-22 15:36] LABS: BLASTS 1 % (0-0)
[2020-08-22 15:37] LABS: OVALOCYTES FEW
[2020-08-22 15:39] LABS: PLATELET SUFFICIENCY LOW (NORMAL); POLYCHROMASIA SLIGHT
== END 2020-08-22 16:00 | disposition home or self-care (01) ==
LOC: ED 13:28
PROVIDERS: Emergency Medicine
DX: C91.10 Chronic lymphocytic leukemia of B-cell type not having achieved remission (principal); D57.819 Other sickle-cell disorders with crisis, unspecified; G89.29 Other chronic pain; Z79.899 Other long term (current) drug therapy

== ENCOUNTER 2020-09-21 14:07 | Emergency (ER) | payer OTHER ==
[~2020-09-21] VITALS: Ht 162.5 cm; Wt 78.5 kg
[2020-09-21 15:44] LABS: MEAN CELL VOLUME 93.1 fl (81.0-99.0); MEAN CORPUSCULAR HGB 29.1 pg (27.0-31.0); MEAN CORPUSCULAR HGB CONC 31.3 g/dl (33.0-37.0); MEAN PLATELET VOLUME 12.7 fl (9.6-12.3); NUCLEATED RED BLOOD CELL 3.6 % (0.0-0.0); NUCLEATED RED BLOOD CELL 6.9 10*3/uL (0.0-0.0); PLATELET COUNT AUTOMATED 68 10*3/uL (130-400); RED BLOOD COUNT 1.75 10*6/uL (4.10-5.10); RED CELL DISTRI WIDTH 19.9 % (0-14.5)
[2020-09-21 15:46] LABS: WHITE BLOOD COUNT 192.2 10*3/uL (4.8-10.8)
[2020-09-21 15:47] LABS: HEMATOCRIT 16.3 % (37.0-47.0)
[2020-09-21 15:57] LABS: ALBUMIN 2.7 gm/dl (3.1-4.5); ALKALINE PHOSPHATASE 80 U/L (45-117); BUN 3 mg/dl (7-24); CHLORIDE 108 mmol/L (98-107); CREATININE 0.82 mg/dL (0.55-1.02); POTASSIUM 3.4 mmol/L (3.5-5.1); SGOT/AST 47 IU/L (3-35); SGPT/ALT 13 U/L (12-78); SODIUM 138 mmol/L (136-145); TOTAL PROTEIN 6.6 gm/dL (6.4-8.2)
[2020-09-21 16:32] LABS: TOTAL CELLS COUNTED 100 #CELLS
[2020-09-21 16:35] LABS: BLASTS 1 % (0-0)
[2020-09-21 16:36] LABS: OVALOCYTES FEW; PLATELET SUFFICIENCY LOW (NORMAL)
[2020-09-21 16:37] LABS: BURR CELLS FEW
== END 2020-09-21 17:39 | disposition home or self-care (01) ==
LOC: ED 14:07
PROVIDERS: Physician Assistant
DX: C91.10 Chronic lymphocytic leukemia of B-cell type not having achieved remission (principal); D57.818 Other sickle-cell disorders with crisis with other specified complication; D64.9 Anemia, unspecified; R11.2 Nausea with vomiting, unspecified; Z79.899 Other long term (current) drug therapy; Z91.041 Radiographic dye allergy status; Z88.6 Allergy status to analgesic agent; Z91.013 Allergy to seafood; Z88.5 Allergy status to narcotic agent

== ENCOUNTER 2020-10-25 12:10 | Emergency (ER) | payer OTHER ==
[~2020-10-25] VITALS: Ht 162.5 cm; Wt 71.7 kg
[2020-10-25 12:46] LABS: MEAN CELL VOLUME 93.2 fl (81.0-99.0); MEAN CORPUSCULAR HGB 28.6 pg (27.0-31.0); MEAN CORPUSCULAR HGB CONC 30.7 g/dl (33.0-37.0); MEAN PLATELET VOLUME 9.3 fl (9.6-12.3); NUCLEATED RED BLOOD CELL 0.1 10*3/uL (0.0-0.0); NUCLEATED RED BLOOD CELL 0.4 % (0.0-0.0); PLATELET COUNT AUTOMATED 53 10*3/uL (130-400); RED BLOOD COUNT 3.11 10*6/uL (4.10-5.10); RED CELL DISTRI WIDTH 19.3 % (0-14.5); WHITE BLOOD COUNT 12.4 10*3/uL (4.8-10.8)
[2020-10-25 13:03] LABS: BASOPHILS 1 % (0-1); PLATELET SUFFICIENCY LOW (NORMAL); POLYCHROMASIA SLIGHT; SCHISTOCYTES FEW; TOTAL CELLS COUNTED 100 #CELLS
[2020-10-25 13:05] LABS: ALBUMIN 2.9 gm/dl (3.1-4.5); ALKALINE PHOSPHATASE 66 U/L (45-117); BUN 5 mg/dl (7-24); CHLORIDE 108 mmol/L (98-107); CREATININE 0.75 mg/dL (0.55-1.02); POTASSIUM 3.7 mmol/L (3.5-5.1); SGOT/AST 11 IU/L (3-35); SGPT/ALT 8 U/L (12-78); SODIUM 141 mmol/L (136-145); TOTAL PROTEIN 6.7 gm/dL (6.4-8.2)
== END 2020-10-25 14:11 | disposition home or self-care (01) ==
LOC: ED 12:10
PROVIDERS: Physician Assistant
DX: D57.00 Hb-SS disease with crisis, unspecified (principal); I10 Essential (primary) hypertension; Z91.041 Radiographic dye allergy status; Z91.013 Allergy to seafood; Z88.8 Allergy status to other drugs, medicaments and biological substances; Z79.899 Other long term (current) drug therapy

== ENCOUNTER 2020-11-25 14:59 | Emergency (ER) | payer OTHER ==
[~2020-11-25] VITALS: Ht 162.5 cm; Wt 74.8 kg
== END 2020-11-25 17:10 | disposition home or self-care (01) ==
LOC: ED 14:59
DX: D57.00 Hb-SS disease with crisis, unspecified (principal); R11.2 Nausea with vomiting, unspecified; C91.10 Chronic lymphocytic leukemia of B-cell type not having achieved remission; L40.9 Psoriasis, unspecified; Z91.041 Radiographic dye allergy status; Z88.6 Allergy status to analgesic agent; Z88.8 Allergy status to other drugs, medicaments and biological substances; Z91.013 Allergy to seafood; Z88.5 Allergy status to narcotic agent; Z79.899 Other long term (current) drug therapy; Z95.828 Presence of other vascular implants and grafts

== ENCOUNTER 2020-12-22 07:40 | Emergency (ER) | payer OTHER ==
[~2020-12-22] VITALS: Ht 162.5 cm; Wt 72.6 kg
== END 2020-12-22 11:14 | disposition home or self-care (01) ==
LOC: ED 07:40
DX: C91.10 Chronic lymphocytic leukemia of B-cell type not having achieved remission (principal); L40.9 Psoriasis, unspecified; D57.00 Hb-SS disease with crisis, unspecified; R11.2 Nausea with vomiting, unspecified; Z88.8 Allergy status to other drugs, medicaments and biological substances; Z91.041 Radiographic dye allergy status; Z91.013 Allergy to seafood; Z88.5 Allergy status to narcotic agent; Z79.899 Other long term (current) drug therapy

== ENCOUNTER 2021-01-16 07:55 | Emergency (ER) | payer OTHER ==
[~2021-01-16] VITALS: Wt 74.8 kg
[2021-01-16 09:09] LABS: HEMATOCRIT 26.7 % (37.0-47.0); MEAN CELL VOLUME 88.4 fl (81.0-99.0); MEAN CORPUSCULAR HGB 25.5 pg (27.0-31.0); MEAN CORPUSCULAR HGB CONC 28.8 g/dl (33.0-37.0); NUCLEATED RED BLOOD CELL 0.9 10*3/uL (0.0-0.0); NUCLEATED RED BLOOD CELL 2.5 % (0.0-0.0); PLATELET COUNT AUTOMATED 95 10*3/uL (130-400); RED BLOOD COUNT 3.02 10*6/uL (4.10-5.10); RED CELL DISTRI WIDTH 22.5 % (0-14.5); WHITE BLOOD COUNT 34.5 10*3/uL (4.8-10.8)
[2021-01-16 09:23] LABS: BUN 8 mg/dl (7-24); CHLORIDE 108 mmol/L (98-107); CREATININE 0.73 mg/dL (0.55-1.02); SODIUM 140 mmol/L (136-145)
[2021-01-16 09:29] LABS: TROPONIN I < 0.015 ng/ml (<0.045)
[2021-01-16 09:31] LABS: TOTAL CELLS COUNTED 100 #CELLS
[2021-01-16 09:32] LABS: PLATELET SUFFICIENCY LOW (NORMAL); POLYCHROMASIA SLIGHT; SCHISTOCYTES FEW
== END 2021-01-16 10:27 | disposition home or self-care (01) ==
LOC: ED 07:55
PROVIDERS: Emergency Medicine
DX: C91.10 Chronic lymphocytic leukemia of B-cell type not having achieved remission (principal); D57.00 Hb-SS disease with crisis, unspecified; F17.200 Nicotine dependence, unspecified, uncomplicated; Z91.041 Radiographic dye allergy status; Z88.6 Allergy status to analgesic agent; Z88.8 Allergy status to other drugs, medicaments and biological substances; Z79.899 Other long term (current) drug therapy

== ENCOUNTER 2021-01-22 12:32 | Emergency (ER) | payer OTHER ==
[~2021-01-22] VITALS: Wt 74.8 kg
== END 2021-01-22 14:21 | disposition home or self-care (01) ==
LOC: ED 12:32
DX: G89.29 Other chronic pain (principal); R11.2 Nausea with vomiting, unspecified; Z91.041 Radiographic dye allergy status; Z88.8 Allergy status to other drugs, medicaments and biological substances; Z91.013 Allergy to seafood; Z88.6 Allergy status to analgesic agent; Z79.899 Other long term (current) drug therapy